=== PATIENT | male | born 1960 | race Caucasian/White ===

== ENCOUNTER 2017-08-30 09:20 | Observation (INO) | payer BC ==
[2017-08-30] VITALS (8 sets, daily range): BP systolic 139–152; BP diastolic 79–91
[~2017-08-30] VITALS: Ht 185.4 cm; Wt 164.5 kg
[~2017-08-30 09:20] MED LIST: HYDROCHLOR12.5 MG/CA PO; TAMOXIFEN CITRA10 MG PO
--- NOTE | 2017-08-30 09:20 | NUR ---
ASSISTED FROM CAR AND TO ROOM 14 VIA W/C
[2017-08-30 09:47] LABS: HEMATOCRIT 40.2 % (39.0-50.0); HEMOGLOBIN 13.1 g/dl (14.0-18.0); IMMATURE GRANULOCYTES 0.4 % (0.0-1.0); MEAN CORPUSCULAR HGB 27.7 pG CALC (26.0-32.0); MEAN CORPUSCULAR HGB CONC 32.6 g/L CALC (32.0-36.0); NEUT# 5.84 thou/uL (1.82-7.42); RED BLOOD COUNT 4.73 mill/uL (4.70-6.10); RED CELL DISTRI WIDTH 13.8 % (11.5-15.5)
[2017-08-30 09:58] LABS: ALBUMIN 4.2 g/dL (3.2-5.0); ALKALINE PHOSPHATASE 91 u/l (38-126); ANION GAP 12 (6-22 (CALC)); BILIRUBIN, TOTAL 0.7 mg/dL (0.0-1.4); BUN 15 mg/dL (9-20); BUN/CREATININE RATIO 18 (12-20 (CALC)); CARBON DIOXIDE 28 mmol/l (22-30); CHLORIDE 104 mmol/l (95-108); CREATININE 0.8 mg/dL (0.7-1.3); GFR > 60 ML/MIN (>=60 (CALC)); GFR FOR AFR.AMER. > 60 ML/MIN (>=60 (CALC)); LIPASE 79 u/l (23-300); SGOT/AST 20 u/l (17-59); SGPT/ALT 34 u/l (21-72); SODIUM 140 mmol/l (137-146); TOTAL PROTEIN 7.7 g/dL (6.3-8.2)
[2017-08-30 10:00] LABS: INTERNATIONAL NORMALIZED RATIO 0.9 RATIO (0.7-1.3); PROTHROMBIN TIME 10.5 SECONDS (9.0-12.5)
--- NOTE | 2017-08-30 10:00 | NUR ---
ASSUMED CARE OF PT- REPORT FROM JOSESITO DELGADILLO
--- NOTE | 2017-08-30 10:18 | NUR ---
PT RESTING ON STRETCHER, PT STATES WEAKNESS ON RIGHT SIDE, UNEQUAL LINE MAINTENANCE TECHNICIAN STRENGTH, PT STATES PRESSURE BEHIND EYES, PT IS AOX4. NO APHASIA OR DYSARRYTHMIA. PT STATES BEGAN FEELING WEAK ABOUT 2300 LAST NIGHT. PT STATES SIMILAR EPISODE TWO DAYS AGO THAT RESOLVED ON ITS OWN.
[2017-08-30 10:29] LABS: TSH, 3RD GENERATION 1.34 uIU/mL (0.47 - 4.68)
--- NOTE | 2017-08-30 11:18 | NUR ---
PT RESTING ON STRETCHER, STATES NO COMPLAINTS AT THIS TIME. AT BEDSIDE
[2017-08-30] MEDS ORDERED: CARVEDILOL6.25 MG PO (11:22)
[2017-08-30] MEDS ORDERED: TIZANIDINE HCL4 M1 PO (11:23)
[2017-08-30] MEDS ORDERED: ESOMEPRAZOLE MA40 MG (11:23)
[2017-08-30] MEDS ORDERED: ASPIRIN81 MG PO (11:23)
[2017-08-30] MEDS ORDERED: FOLIC ACID1 MG PO (11:24)
[2017-08-30] MEDS ORDERED: FUROSEMIDE20 MG PO (11:25)
[2017-08-30] MEDS ORDERED: HYDROCODONE/ACE1 T10 PO (11:25)
[2017-08-30] MEDS ORDERED: AMLODIPINE5 MG PO (11:26)
[2017-08-30] MEDS ORDERED: CLOBETASOL0.054 EX (11:26)
--- NOTE | 2017-08-30 11:27 | NUR ---
MD AT BEDSIDE TO DISCUSS RESULTS
[2017-08-30] MEDS ORDERED: ACCUPRIL5 MG PO (11:28)
[2017-08-30] MEDS ORDERED: EFUDEX EX (11:28)
--- NOTE | 2017-08-30 12:22 | NUR ---
PT RESTING ON STRETCHER, VITALS BEING MONITORED, PT STATES NO NEW COMPLAINTS AT THIS TIME.
[2017-08-30 12:24] LABS: URINE BILIRUBIN - DIPSTICK NEGATIVE (NEGATIVE); URINE BLOOD DIPSTICK NEGATIVE (NEGATIVE); URINE COLOR YELLOW; URINE GLUCOSE - DIPSTICK NEGATIVE (NEGATIVE); URINE KETONE NEGATIVE (NEGATIVE); URINE LEUK ESTERASE NEGATIVE (NEGATIVE); URINE NITRITE - DIPSTICK NEGATIVE (Negative); URINE PROTEIN - DIPSTICK NEGATIVE (NEG-TRACE); URINE SPECIFIC GRAVITY <=1.005; URINE UROBILINOGEN - DIPSTICK 0.2 E.U./dL (0.2)
[2017-08-30 12:25] LABS: URINE CLARITY CLEAR
--- NOTE | 2017-08-30 13:22 | NUR ---
PT STATES THAT HE IS FEELING BETTER, FEELS THAT HE IS MORE WITH IT NOW. PT APPEARS MORE ALERT AND ATTENTIVE. AT BEDSIDE.
--- NOTE | 2017-08-30 13:56 | NUR ---
REPORT GIVEN TO PONCHO DELGADILLO- ACCPETED PT
--- NOTE | 2017-08-30 14:37 | NUR ---
PT ADVISED OF WAIT TIME FOR TRANSPORT TO [facility], NO COMPLAINTS STATED
--- NOTE | 2017-08-30 15:14 | NUR ---
Admission Note Report Given to: PONCHO Transported by: Wheelchair X Stretcher Transported with: Nurse Transporter X Patent IV O2 X Human Resources Operations Specialist TRANSPORTED WITH RN TO [facility] WITHOUT INCIDENT
--- NOTE | 2017-08-30 17:09 | NUR ---
REPORT RECEIVED FROM HANS BECK ARRIVED ON UNIT @ 1511, ALERT AND ORIENTED X 3, DENIES PAIN BUT STATES HE IS DIZZY, ORIENTED TO ROOM AND CALL GOMES, ADVISED TO CALL FOR ASSIST FOR ALL OOB ACTIVITIES, WILL CONTINUE TO MONITOR.
--- NOTE | 2017-08-30 19:45 | NUR ---
PT SITTING UP IN BED WATCHING TV. PT IS ALERT AND ORIENTED X3. PERRLA. SHIFT ASSESSMENT COMPLETED AT THIS TIME. IV PATENT. SPOUSE IN ROOM. BOTH REPORT DIZZINESS SINCE TUESDAY. PT AND SPOUSE ALSO REPORT THAT PT HAS HAD DRAINAGE FROM RIGHT EAR FOR ABOUT A WEEK NOW. ORTHOSTATICS COMPLETED AND CHARTED. NOTED LARGE AMOUNT OF EAR WAX IN BILAT EARS. CALL LOIGHT IN REACH. WILL CONTINUE TO MONITOR
[2017-08-31] VITALS (11 sets, daily range): BP systolic 123–170; BP diastolic 70–93
--- NOTE | 2017-08-31 00:04 | NUR ---
PT RESTING IN BED WITH EYES CLOSED. SPOUSE IN ROOM. RESP ARE EVEN AND UNLABORED. NO DISTRESS NOTED. CALL LIGHT IN REACH. WILL CONTINUE TO MONITOR
--- NOTE | 2017-08-31 04:17 | NUR ---
PT RESTING IN BED WITH EYES CLOSED. SPOUSE IN ROOM. RESP ARE EVEN AND UNLABORED. NO DISTRESS NOTED. CALL LIGHT IN REACH. WILL CONTINUE TO MONITOR
[2017-08-31 06:37] LABS: CHOLESTEROL HDL RATIO 4.7 (<4.4 (CALC))
--- NOTE | 2017-08-31 07:30 | NUR ---
PNEUMONIA VACCINE THE PATIENT IS UNDER 65 YEARS OF AGE AND HAS NO UNDERLYING CONDITIONS THAT WOULD REQUIRE EARLY PNEUMONIA VACCINATION. NO PNEUMONIA VACCINE WARRANTED AT THIS TIME.
--- NOTE | 2017-08-31 07:56 | NUR ---
SHIFT CHANGE REPORT FROM HANS ZABALA SLEEPING, C-PAP IN PLACE, TELE MONITOR IN PLACE, BREATHING EVEN AND NON-LABORED, CALL GOMES IN REACH.
--- NOTE | 2017-08-31 07:57 | NUR ---
PT AWAKE ALERT AND ORIENTED, STATES HE HAD ONE EPISODE DIZZINESS WHEN HE RETURNED FROM BR AND WENT BACK TO BED BUT HE IS FEELING MUCH BETTER TODAY THAN HE DID YESTERDAY, SPOUSE AT BEDSIDE.
--- NOTE | 2017-08-31 11:30 | NUR ---
ORTHOSTATIC BP WAS DONE BY THIS BIT WELDER AT 1130. AT 1130 LAYING BP WAS 170/74; PULSE 76; O2 97%; SITTING BP AT 1135 WAS 163/85; PULSE 77; O2 97%; STANDING BP AT 1140 WAS 160/79; PULSE 85; O2 97%. PT WAS PLACED BACK IN BED. CALL GOMES IN REACH.
--- NOTE | 2017-08-31 12:00 | NUR ---
SAT UP IN BED AND ATE MEAL, NO NOW COMPLAINS, WILL CONTINUE TO MONITOR.
--- NOTE | 2017-08-31 19:20 | NUR ---
PT.IS IN RECLINER AND SITTING ON SIDE OF BED. PT DENIES HAVING ANY DIZZINESS AT THIS TIME. WILL CONTINUE TO MONITOR PT INSTRUCTED TO CALL IF ANY NEEDS ARISE. WILL FOLLOW-UP WITH FULL ASSESSMENT AND MEDICATIONS ORDERED.
--- NOTE | 2017-08-31 21:24 | NUR ---
PT.MEDICATED ORDERS PROVIDE AND ASSESSMENT COMPLETED. PT.DENIES DIZZINESS AT THIS TIME. LUNGS ARE CLEAR/DIM, ABD SOFT AND NON-TENDER, NO EDEMA NOTED, NEURO'S ARE INTACT. IS AT BEDSIDE, PT IS SITTING IN RECLINER, DENIES ANY OTHER NEEDS AT THIS TIME. CALL LIGHT IS AT SIDE AND PT ENCOURAGED TO CALL ANY NEEDS ARISE.
--- NOTE | 2017-09-01 03:18 | NUR ---
PT.APPEARS TO BE SLEEPING AT THIS TIME, C-PAP IN USE. FAMILY AT BEDSIDE. NO S/S OF DISTRESS.
[2017-09-01 04:00] VITALS: BP 129/78
[2017-09-01 05:00] LABS: HEMOGLOBIN 12.3 g/dl (14.0-18.0); IMMATURE GRANULOCYTES 0.4 % (0.0-1.0); MEAN CELL VOLUME 84.6 fL CALC (80.0-100.0); MEAN CORPUSCULAR HGB 27.4 pG CALC (26.0-32.0); MEAN CORPUSCULAR HGB CONC 32.4 g/L CALC (32.0-36.0); NEUT# 6.06 thou/uL (1.82-7.42); RED BLOOD COUNT 4.49 mill/uL (4.70-6.10); RED CELL DISTRI WIDTH 13.8 % (11.5-15.5)
[2017-09-01 05:43] LABS: ANION GAP 13 (6-22 (CALC)); BUN 12 mg/dL (9-20); BUN/CREATININE RATIO 13 (12-20 (CALC)); CARBON DIOXIDE 26 mmol/l (22-30); CHLORIDE 104 mmol/l (95-108); CREATININE 0.9 mg/dL (0.7-1.3); GFR > 60 ML/MIN (>=60 (CALC)); GFR FOR AFR.AMER. > 60 ML/MIN (>=60 (CALC)); MAGNESIUM 2.1 mg/dL (1.6-2.3); POTASSIUM 3.8 mmol/l (3.5-5.1); SODIUM 139 mmol/l (137-146)
--- NOTE | 2017-09-01 06:10 | NUR ---
PT.WAS SLEEPING, BUT AWOKE TO MY ENTERING ROOM. FAMILY MEMBER AT BEDSIDE ASLEEP. NO S/S OF DISTRESS NOTED AND PT IS WEARING C-PAP. DENIES ANY NEEDS, JUST ASKING ABOUT BREAKFAST TIMING
--- NOTE | 2017-09-01 06:45 | NUR ---
RECIEVED REPORT NO PT. ASSUMED PT CARE.
--- NOTE | 2017-09-01 07:45 | NUR ---
PT ALERTX3, ABLE TO MAKE NEEDS KNOWN. SPEECH CLEAR, PERRL. PT DENIES DIZZINESS, SOB OR DESTRESS AT THIS TIME. LS CLEAR THROUGHOUT, BS X4 ACTIVE. PT STATES LAST BM 08-31-18. 18G TO RAC/SL FLUSHED WITHOUT RESISTANCE. PT DENIES PAIN, AT BEDSIDE. BED IN LOWEST POSITION, SEIZURE PRECAUTIONS INTACT.CALL LIGHT IN REACH, WILL MONITOR.
[2017-09-01 08:00] VITALS: BP 163/77
--- NOTE | 2017-09-01 09:30 | NUR ---
DR. VILLARREAL AND JASPREET ROSADO AT BEDSIDE FOR ASSESSMENT AND TO DISCUSS PLAN OF CARE, PT TO BE TRANSFERRED TO [facility] FOR FURTHER EVAL. PT AWARE AND CONSENTS TO TRANSFER.
[2017-09-01] MEDS ORDERED: MELOXICAM15 MG PO (10:18)
[2017-09-01] MEDS ORDERED: COREG6.25 MG PO (10:22)
[2017-09-01 11:04] VITALS: BP 143/86
--- NOTE | 2017-09-01 11:28 | NUR ---
DIETARY AT BEDSIDE FOR EDUCATION
--- NOTE | 2017-09-01 11:45 | NUR ---
PT RESTING IN RECLINER, DENIES CHEST PAIN, SOB OR DISTRESS AT THIS TIME, DENIES DIZZINESS AT THIS TIME. PERRL, CALL LIGHT IN REACH, WILL MONITOR.
--- NOTE | 2017-09-01 11:48 | NUR ---
SPOKE WITH TERENCE FROM [facility].ETA 1430 FOR TRANSFER TO [facility]
[2017-09-01 15:33] VITALS: BP 118/77
--- NOTE | 2017-09-01 16:12 | NUR ---
Discharge instructions given. Patient verbalizes understanding of same. Discharged in stable condition via Medical Transport to [facility] with [facility]. All belongings sent with pt.
--- NOTE | 2017-09-01 16:18 | NUR ---
REPORT CALLED TO [facility] NURSE CHAZ @ [address] [phone].
== END 2017-09-01 16:11 | disposition short-term general hospital (02) | DRG 312 ==
LOC: ED 09:20 → ED-I 11:41 → ED 12:34 → MS2 12:35
PROVIDERS: Family Medicine; Nurse Practitioner Family; ADMIT Internal Medicine; ATTEND Internal Medicine
DX: R55 Syncope and collapse (principal); Z68.42 Body mass index [BMI] 45.0-49.9, adult; I11.0 Hypertensive heart disease with heart failure; I50.9 Heart failure, unspecified; G47.30 Sleep apnea, unspecified; M06.9 Rheumatoid arthritis, unspecified; G47.33 Obstructive sleep apnea (adult) (pediatric); G89.29 Other chronic pain; M54.5 Low back pain; R42 Dizziness and giddiness; I49.9 Cardiac arrhythmia, unspecified; E11.9 Type 2 diabetes mellitus without complications; I25.10 Atherosclerotic heart disease of native coronary artery without angina pectoris; E66.01 Morbid (severe) obesity due to excess calories; Z87.891 Personal history of nicotine dependence; Z91.14 Patient's other noncompliance with medication regimen; Z86.73 Personal history of transient ischemic attack (TIA), and cerebral infarction without residual deficits
CPT/HCPCS: G0378; Q9967

== ENCOUNTER 2018-07-17 11:00 | Emergency (ER) | payer BC, MEDICAID ==
[~2018-07-17] VITALS: Ht 185.4 cm; Wt 159.0 kg
[~2018-07-17 11:00] MED LIST changes: +ACCUPRIL5 MG PO; +AMLODIPINE5 MG PO; +ASPIRIN81 MG PO; +CARVEDILOL6.25 MG PO; +CLOBETASOL0.054 EX; +COREG6.25 MG PO; +EFUDEX EX; +ESOMEPRAZOLE MA40 MG; +FOLIC ACID1 MG PO; +FUROSEMIDE20 MG PO; +HYDROCODONE/ACE1 T10 PO; +MELOXICAM15 MG PO; +TIZANIDINE HCL4 M1 PO
[2018-07-17] MEDS ORDERED: ATORVASTATIN CA10 MG PO (11:34)
[2018-07-17] MEDS ORDERED: ATIVAN2 MG PO (11:35)
[2018-07-17] MEDS ORDERED: BRIVIACT100 MG PO (11:36)
[2018-07-17] MEDS ORDERED: HYDROCO/APAP1 TA9 PO (11:37)
[2018-07-17] MEDS ORDERED: NEXIUM40 M1 PO (11:38)
[2018-07-17] MEDS ORDERED: AMLODIPINE BESY10 MG PO (11:38)
[2018-07-17] MEDS ORDERED: LOSARTAN POT100 MG PO (11:39)
[2018-07-17] MEDS ORDERED: METFORMIN500 M2 PO (11:41)
[2018-07-17] MEDS ORDERED: METHOTREXATE2.5 MG PO (11:43)
[2018-07-17] MEDS ORDERED: PREDNISONE20 MG PO (12:02)
[2018-07-17 12:15] VITALS: BP 139/77
== END 2018-07-17 12:15 | disposition home or self-care (01) | DRG 558 ==
LOC: ED 11:00
DX: M75.91 Shoulder lesion, unspecified, right shoulder (principal); E11.9 Type 2 diabetes mellitus without complications; I11.0 Hypertensive heart disease with heart failure; I50.9 Heart failure, unspecified

== ENCOUNTER 2021-09-25 08:34 | Emergency (ER) | payer MEDICAID ==
[~2021-09-25] VITALS: Ht 180.3 cm; Wt 115.9 kg
[2021-09-25] VITALS (8 sets, daily range): BP systolic 102–120; BP diastolic 52–65
[~2021-09-25 08:34] MED LIST changes: +AMLODIPINE BESY10 MG PO; +ATIVAN2 MG PO; +ATORVASTATIN CA10 MG PO; +BRIVIACT100 MG PO; +HYDROCO/APAP1 TA9 PO; +LOSARTAN POT100 MG PO; +METFORMIN500 M2 PO; +METHOTREXATE2.5 MG PO; +NEXIUM40 M1 PO; +PREDNISONE20 MG PO
[2021-09-25 08:56] LABS: HEMATOCRIT 37.5 % (39.0-50.0); HEMOGLOBIN 12.2 g/dl (14.0-18.0); IMMATURE GRANULOCYTES 0.2 % (0.0-5.0); MEAN CORPUSCULAR HGB 30.3 pG CALC (26.0-32.0); MEAN CORPUSCULAR HGB CONC 32.5 g/dL CAL (32.0-36.0); NEUT# 9.29 thou/uL (1.82-7.42); RED BLOOD COUNT 4.02 mill/uL (4.70-6.10); RED CELL DISTRI WIDTH 12.9 % (11.5-15.5)
[2021-09-25 09:05] LABS: MEAN CELL VOLUME 93.3 fL CALC (80.0-100.0)
[2021-09-25 09:14] LABS: ALBUMIN 3.4 g/dL (3.2-5.0); ALKALINE PHOSPHATASE 62 u/l (38-126); ANION GAP 7 (6-22 (CALC)); BILIRUBIN, TOTAL 1.1 mg/dL (0.0-1.4); BUN 10 mg/dL (9-20); BUN/CREATININE RATIO 13 (12-20 (CALC)); CARBON DIOXIDE 32 mmol/l (22-30); CHLORIDE 102 mmol/l (95-108); CREATININE 0.8 mg/dL (0.7-1.3); GFR FOR AFR.AMER. > 60 ML/MIN (>=60 (CALC)); GFR OTHER RACES > 60 ML/MIN (>=60 (CALC)); POTASSIUM 4.2 mmol/l (3.5-5.1); SGOT/AST 21 u/l (17-59); SODIUM 137 mmol/l (137-146); TOTAL PROTEIN 5.9 g/dL (6.3-8.2)
== END 2021-09-25 11:44 | disposition home or self-care (01) ==
LOC: ED 08:34
PROVIDERS: Family Medicine
DX: M54.2 Cervicalgia (principal); S12.9XXD Fracture of neck, unspecified, subsequent encounter; X58.XXXD Exposure to other specified factors, subsequent encounter; E78.5 Hyperlipidemia, unspecified; I11.0 Hypertensive heart disease with heart failure; I50.9 Heart failure, unspecified; E11.9 Type 2 diabetes mellitus without complications; E66.9 Obesity, unspecified; W01.0XXA Fall on same level from slipping, tripping and stumbling without subsequent striking against object, initial encounter; Y92.009 Unspecified place in unspecified non-institutional (private) residence as the place of occurrence of the external cause; Z79.84 Long term (current) use of oral hypoglycemic drugs; Z97.8 Presence of other specified devices; Z98.890 Other specified postprocedural states

== ENCOUNTER 2021-11-09 15:48 | Inpatient (IN) | payer MEDICAID ==
[~2021-11-09] VITALS: Ht 180.3 cm; Wt 111.8 kg
[2021-11-09] VITALS (19 sets, daily range): BP systolic 108–139; BP diastolic 66–79
[2021-11-09 16:37] LABS: HEMATOCRIT 40.2 % (39.0-50.0); HEMOGLOBIN 13.5 g/dl (14.0-18.0); IMMATURE GRANULOCYTES 0.2 % (0.0-5.0); MEAN CELL VOLUME 90.1 fL CALC (80.0-100.0); MEAN CORPUSCULAR HGB 30.3 pG CALC (26.0-32.0); MEAN CORPUSCULAR HGB CONC 33.6 g/dL CAL (32.0-36.0); NEUT# 17.02 thou/uL (1.82-7.42); RED BLOOD COUNT 4.46 mill/uL (4.70-6.10); RED CELL DISTRI WIDTH 12.8 % (11.5-15.5)
[2021-11-09 17:06] LABS: ALBUMIN 4.1 g/dL (3.2-5.0); ALKALINE PHOSPHATASE 77 u/l (38-126); ANION GAP 15 (6-22 (CALC)); BILIRUBIN, TOTAL 1.9 mg/dL (0.0-1.4); BUN 18 mg/dL (9-20); BUN/CREATININE RATIO 17 (12-20 (CALC)); CARBON DIOXIDE 24 mmol/l (22-30); CHLORIDE 98 mmol/l (95-108); CREATININE 1.1 mg/dL (0.7-1.3); GFR FOR AFR.AMER. > 60 ML/MIN (>=60 (CALC)); GFR OTHER RACES > 60 ML/MIN (>=60 (CALC)); POTASSIUM 3.3 mmol/l (3.5-5.1); SGOT/AST 28 u/l (17-59); SODIUM 133 mmol/l (137-146); TOTAL PROTEIN 7.5 g/dL (6.3-8.2)
[2021-11-09 17:25] LABS: C-REACTIVE PROTEIN > 27.0 mg/dL (0-0.9)
[2021-11-09 19:17] LABS: URINE BILIRUBIN - DIPSTICK NEGATIVE (NEGATIVE); URINE BLOOD DIPSTICK TRACE-INTACT (NEGATIVE); URINE GLUCOSE - DIPSTICK NEGATIVE (NEGATIVE); URINE KETONE NEGATIVE (NEGATIVE); URINE LEUK ESTERASE NEGATIVE (NEGATIVE); URINE PH 5.5 (4.5-8.0); URINE PROTEIN - DIPSTICK TRACE mg/dL (NEG-TRACE); URINE SPECIFIC GRAVITY 1.025; URINE UROBILINOGEN - DIPSTICK 0.2 E.U./dL (0.2)
[2021-11-09 19:18] LABS: URINE COLOR DK. YELLOW; URINE NITRITE - DIPSTICK NEGATIVE (Negative)
[2021-11-10 00:03] VITALS: BP 110/56
[2021-11-10 04:38] VITALS: BP 120/71
[2021-11-10 06:57] VITALS: BP 114/65
[2021-11-10] MEDS ORDERED: TIZANIDINE HYDRO4 M1 PO (14:50)
[2021-11-10] MEDS ORDERED: CYANOCOBAL1000 MCG/M IM (14:52)
[2021-11-10] MEDS ORDERED: DRISDOL50000 UNIT PO (14:54)
[2021-11-10] MEDS ORDERED: TRAZODONE50 MG PO (14:55)
[2021-11-10] MEDS ORDERED: CLARITIN10 M2 PO (14:58)
[2021-11-10] MEDS ORDERED: CITALOPRAM40 MG PO (14:59)
[2021-11-10] MEDS ORDERED: XARELTO20 MG PO (15:02)
[2021-11-10] MEDS ORDERED: NYSTOP100000 UNI TOP (15:04)
[2021-11-10] MEDS ORDERED: LAMICTAL25 M2 PO (15:05)
[2021-11-10] MEDS ORDERED: GABAPENTIN300 M2 PO (15:05)
[2021-11-10] MEDS ORDERED: CYCLOBENZAPRINE10 MG PO (15:07)
[2021-11-10] MEDS ORDERED: TRAMADOL HYDROC50 M1 PO (15:08)
[2021-11-10] MEDS ORDERED: DIAZEPAM5 MG PO (15:09)
[2021-11-10] MEDS ORDERED: DOXYCYCLINE100 MG PO (15:10)
[2021-11-10 16:06] VITALS: BP 105/64
[2021-11-10 18:59] VITALS: BP 92/56
[2021-11-11] VITALS (7 sets, daily range): BP systolic 110–127; BP diastolic 64–69
[2021-11-11 09:18] LABS: HEMATOCRIT 40.3 % (39.0-50.0); HEMOGLOBIN 13.1 g/dl (14.0-18.0); IMMATURE GRANULOCYTES 0.3 % (0.0-5.0); MEAN CELL VOLUME 92.4 fL CALC (80.0-100.0); MEAN CORPUSCULAR HGB CONC 32.5 g/dL CAL (32.0-36.0); NEUT# 13.58 thou/uL (1.82-7.42); RED BLOOD COUNT 4.36 mill/uL (4.70-6.10); RED CELL DISTRI WIDTH 13.2 % (11.5-15.5)
[2021-11-11 09:42] LABS: ALBUMIN 3.3 g/dL (3.2-5.0); ALKALINE PHOSPHATASE 90 u/l (38-126); ANION GAP 16 (6-22 (CALC)); BUN 7 mg/dL (9-20); BUN/CREATININE RATIO 10 (12-20 (CALC)); CARBON DIOXIDE 22 mmol/l (22-30); CHLORIDE 103 mmol/l (95-108); CREATININE 0.8 mg/dL (0.7-1.3); GFR FOR AFR.AMER. > 60 ML/MIN (>=60 (CALC)); GFR OTHER RACES > 60 ML/MIN (>=60 (CALC)); MAGNESIUM 2.1 mg/dL (1.6-2.3); POTASSIUM 3.5 mmol/l (3.5-5.1); SGOT/AST 22 u/l (17-59); SODIUM 137 mmol/l (137-146)
[2021-11-11 09:54] LABS: TOTAL PROTEIN 5.9 g/dL (6.3-8.2)
[2021-11-12] VITALS (7 sets, daily range): BP systolic 99–130; BP diastolic 54–72
[2021-11-12 05:33] LABS: HEMOGLOBIN 11.3 g/dl (14.0-18.0); MEAN CELL VOLUME 91.7 fL CALC (80.0-100.0); MEAN CORPUSCULAR HGB 30.4 pG CALC (26.0-32.0); MEAN CORPUSCULAR HGB CONC 33.1 g/dL CAL (32.0-36.0); RED BLOOD COUNT 3.72 mill/uL (4.70-6.10); RED CELL DISTRI WIDTH 13.4 % (11.5-15.5)
[2021-11-12 05:36] LABS: HEMATOCRIT 34.1 % (39.0-50.0)
[2021-11-12 05:49] LABS: ANION GAP 12 (6-22 (CALC)); BUN 9 mg/dL (9-20); BUN/CREATININE RATIO 11 (12-20 (CALC)); CARBON DIOXIDE 24 mmol/l (22-30); CHLORIDE 104 mmol/l (95-108); CREATININE 0.8 mg/dL (0.7-1.3); GFR FOR AFR.AMER. > 60 ML/MIN (>=60 (CALC)); GFR OTHER RACES > 60 ML/MIN (>=60 (CALC)); SODIUM 137 mmol/l (137-146)
[2021-11-13] VITALS (7 sets, daily range): BP systolic 126–139; BP diastolic 69–77
[2021-11-14 00:22] VITALS: BP 120/71
[2021-11-14 04:00] VITALS: BP 137/77
[2021-11-14 05:22] LABS: HEMATOCRIT 35.5 % (39.0-50.0); HEMOGLOBIN 11.6 g/dl (14.0-18.0); IMMATURE GRANULOCYTES 0.6 % (0.0-5.0); MEAN CELL VOLUME 92.4 fL CALC (80.0-100.0); MEAN CORPUSCULAR HGB 30.2 pG CALC (26.0-32.0); MEAN CORPUSCULAR HGB CONC 32.7 g/dL CAL (32.0-36.0); NEUT# 8.78 thou/uL (1.82-7.42); RED BLOOD COUNT 3.84 mill/uL (4.70-6.10); RED CELL DISTRI WIDTH 13.7 % (11.5-15.5)
[2021-11-14 05:43] LABS: ANION GAP 12 (6-22 (CALC)); BUN 4 mg/dL (9-20); BUN/CREATININE RATIO 7 (12-20 (CALC)); CARBON DIOXIDE 28 mmol/l (22-30); CHLORIDE 99 mmol/l (95-108); CREATININE 0.6 mg/dL (0.7-1.3); GFR FOR AFR.AMER. > 60 ML/MIN (>=60 (CALC)); GFR OTHER RACES > 60 ML/MIN (>=60 (CALC)); POTASSIUM 2.7 mmol/l (3.5-5.1); SODIUM 136 mmol/l (137-146)
[2021-11-14 06:40] VITALS: BP 143/77
[2021-11-14 10:55] VITALS: BP 126/71
[2021-11-14] MEDS ORDERED: LEVOFLOXACIN250 M1 PO (13:39)
[2021-11-14] MEDS ORDERED: PERCOCET 5/325M1 TAB PO ×2 (13:42→13:45)
[2021-11-14] MEDS ORDERED: KLOR-CON M2020 MEQ PO (13:43)
[2021-11-14 15:41] VITALS: BP 115/72
[2021-11-16] MEDS ORDERED: PERCOCET 5/325M1 TAB PO (12:53)
== END 2021-11-14 16:17 | disposition home or self-care (01) | DRG 340 ==
LOC: ED 15:48 → ED-I 19:50 → ED 20:05 → MS2 20:06
PROVIDERS: Internal Medicine; Nurse Practitioner; ADMIT Surgery; ATTEND Surgery
PROC: 0DTJ4ZZ Resection of Appendix, Percutaneous Endoscopic Approach (ICD-10-PCS; principal; 2021-11-10)
DX: K35.32 Acute appendicitis with perforation, localized peritonitis, and gangrene, without abscess (principal); E87.6 Hypokalemia; I11.0 Hypertensive heart disease with heart failure; I50.9 Heart failure, unspecified; E11.9 Type 2 diabetes mellitus without complications; I48.91 Unspecified atrial fibrillation; M06.9 Rheumatoid arthritis, unspecified; E78.00 Pure hypercholesterolemia, unspecified; F32.A Depression, unspecified; F41.9 Anxiety disorder, unspecified; G47.33 Obstructive sleep apnea (adult) (pediatric); E66.9 Obesity, unspecified; B96.5 Pseudomonas (aeruginosa) (mallei) (pseudomallei) as the cause of diseases classified elsewhere; Z98.84 Bariatric surgery status; Z87.891 Personal history of nicotine dependence; Z20.822 Contact with and (suspected) exposure to COVID-19
CPT/HCPCS: J0131; Q9967

== ENCOUNTER 2021-12-22 07:29 | Day surgery (SDC) | payer MEDICAID ==
[~2021-12-22] VITALS: Ht 180.3 cm; Wt 111.0 kg
[~2021-12-22 07:29] MED LIST changes: +CITALOPRAM40 MG PO; +CLARITIN10 M2 PO; +CLOBETASOL PRO TOP; +CYANOCOBAL1000 MCG/M IM; +CYCLOBENZAPRINE10 MG PO; +DIAZEPAM5 MG PO; +DOXYCYCLINE100 MG PO; +DRISDOL50000 UNIT PO; +GABAPENTIN100 MG PO; +GABAPENTIN300 M2 PO; +KLOR-CON M2020 MEQ PO; +LAMICTAL25 M2 PO; +LEVOFLOXACIN250 M1 PO; +LOSARTAN POTASS50 MG PO; +NYSTOP100000 UNI TOP; +PERCOCET 5/325M1 TAB PO; +TIZANIDINE HYDRO4 M1 PO; +TRAMADOL HYDROC50 M1 PO; +TRAZODONE50 MG PO; +XARELTO20 MG PO; +[UNRECOGNIZED DRUG - OTHER] PO; +[UNRECOGNIZED DRUG - OTHER] PO
[2021-12-22 09:44] VITALS: BP 122/65
== END 2021-12-22 10:05 | disposition home or self-care (01) ==
LOC: ENDO 07:29
PROVIDERS: ATTEND Surgery
DX: Z12.11 Encounter for screening for malignant neoplasm of colon (principal); K57.30 Diverticulosis of large intestine without perforation or abscess without bleeding; K63.5 Polyp of colon; K64.8 Other hemorrhoids; I11.0 Hypertensive heart disease with heart failure; I50.9 Heart failure, unspecified; M06.9 Rheumatoid arthritis, unspecified; E11.9 Type 2 diabetes mellitus without complications; E66.9 Obesity, unspecified; Z90.49 Acquired absence of other specified parts of digestive tract

== ENCOUNTER 2022-02-14 09:07 | Emergency (ER) | payer MEDICAID ==
[~2022-02-14] VITALS: Ht 180.3 cm; Wt 109.0 kg
[~2022-02-14 09:07] MED LIST changes: +MEDDOSEPAK PO
[2022-02-14] MEDS ORDERED: NAPROXEN500 MG PO (09:27)
[2022-02-14 09:53] VITALS: BP 126/74
== END 2022-02-14 09:54 | disposition home or self-care (01) ==
LOC: ED 09:07
DX: S60.221A Contusion of right hand, initial encounter (principal); I10 Essential (primary) hypertension; E11.9 Type 2 diabetes mellitus without complications; E78.5 Hyperlipidemia, unspecified; W23.2XXA Caught, crushed, jammed or pinched between a moving and stationary object, initial encounter; Y93.89 Activity, other specified; Y92.008 Other place in unspecified non-institutional (private) residence as the place of occurrence of the external cause

== ENCOUNTER 2022-09-26 14:20 | Emergency (ER) | payer MEDICAID ==
[~2022-09-26] VITALS: Ht 180.3 cm; Wt 106.0 kg
[~2022-09-26 14:20] MED LIST changes: +BRIVIACT100 MG; +LASIX 20 MG TAB20 MG PO; +NAPROXEN500 MG PO; +XARELTO10 MG PO
[2022-09-26 16:25] VITALS: BP 141/89
[2022-09-26 16:30] VITALS: BP 124/91
[2022-09-26 16:45] VITALS: BP 141/86
[2022-09-26 17:00] VITALS: BP 137/88
[2022-09-26] MEDS ORDERED: TRAMADOL HYDROC50 M1 PO (17:07)
[2022-09-26 17:15] VITALS: BP 141/85
== END 2022-09-26 17:35 | disposition home or self-care (01) ==
LOC: ED 14:20
DX: M19.012 Primary osteoarthritis, left shoulder (principal); I10 Essential (primary) hypertension; E11.9 Type 2 diabetes mellitus without complications; E78.5 Hyperlipidemia, unspecified

== ENCOUNTER 2022-12-27 11:12 | Emergency (ER) | payer MEDICAID ==
[2022-12-27] VITALS (14 sets, daily range): BP systolic 99–130; BP diastolic 64–80
[~2022-12-27] VITALS: Ht 180.3 cm; Wt 100.0 kg
[2022-12-27] MEDS ORDERED: PREDNISONE10 MG PO (14:54)
[2022-12-27] MEDS ORDERED: LORTAB 5/3255 MG PO (14:54)
[2022-12-27] MEDS ORDERED: CYCLOBENZAPRINE10 MG PO (14:56)
== END 2022-12-27 15:39 | disposition home or self-care (01) ==
LOC: ED 11:12
DX: M54.16 Radiculopathy, lumbar region (principal); I10 Essential (primary) hypertension; E11.9 Type 2 diabetes mellitus without complications; E78.5 Hyperlipidemia, unspecified